=== PATIENT | female | born 1965 | race Caucasian/White ===

== ENCOUNTER → 2016-10-27 | Outpatient (CLI) | payer BC, OTHER ==
[~2016-10-27] MED LIST: /ACETCOD2T PO; /LOR25TA PO; BACT800T5 PO; DEXA PO; PRIL20CA PO; oxycodone PO; tylenol PO
[2016-10-27 07:06] LABS: BLOOD UREA NITROGEN 22 MG/DL (7-18); CREATININE FOR GFR 0.76 MG/DL (0.55-1.02); GLOMERULAR FILTRATION RATE > 60.0 (>51)
== END ==
LOC: M LAB 06:17
PROVIDERS: ATTEND Neurological Surgery
DX: D32.0 Benign neoplasm of cerebral meninges (principal)

== ENCOUNTER 2017-01-28 12:03 | Emergency (ER) | payer BC, OTHER ==
[~2017-01-28] VITALS: Ht 170.2 cm; Wt 90.9 kg
[2017-01-28] MEDS ORDERED: TRAM50TA2 (12:13)
[2017-01-28] MEDS ORDERED: DULO1CAP3 (12:13)
[2017-01-28] MEDS ORDERED: LISI10TA4 (12:13)
[2017-01-28] MEDS ORDERED: KETOROLAC 30 MG/ML VIAL (J1885) IV PRN (12:30)
[2017-01-28] MEDS ORDERED: NS 1,000 ML IV ONE (12:45)
[2017-01-28 13:08] LABS: CONTROL LINE UCG INT CTR LINE PRESENT
[2017-01-28 13:11] LABS: ALBUMIN 4.1 GM/DL (3.2-5.2); ALBUMIN/GLOBULIN RATIO 1.17 (1.00-1.93); BILIRUBIN,DIRECT 0.1 MG/DL (0.0-0.2); BILIRUBIN,TOTAL 0.4 MG/DL (0.2-1.0); TOTAL PROTEIN 7.6 GM/DL (6.4-8.2)
[2017-01-28] MEDS ORDERED: MORPHINE 4 MG/ML 1ML SYRINGE IV ONE (13:30)
[2017-01-28] MEDS ORDERED: ONDANSETRON 4MG/2ML VIAL (J2405) IV ONE (13:30)
[2017-01-28 13:36] LABS: MEAN CORPUSCULAR HEMOGLOBIN 30.8 pg (27.0-33.0); MEAN CORPUSCULAR HGB CONC 31.5 g/dl (32.0-36.5); MEAN CORPUSCULAR VOLUME 97.7 fl (80.0-96.0); PLATELET COUNT, AUTOMATED 272 10^3/uL (150-450); RED CELL DISTRIBUTION WIDTH 14.4 % (11.5-14.5)
[2017-01-28 13:45] LABS: POS COUNT POS FLAG; WHITE BLOOD COUNT 68.2 10^3/uL (4.0-10.0)
[2017-01-28 14:04] LABS: ANION GAP 7 MEQ/L (8-16); BLOOD UREA NITROGEN 19 MG/DL (7-18); CALCIUM LEVEL 9.1 MG/DL (8.5-10.1); CARBON DIOXIDE LEVEL 26 MEQ/L (21-32); CHLORIDE LEVEL 107 MEQ/L (98-107); CREATININE FOR GFR 0.83 MG/DL (0.55-1.02); GLOMERULAR FILTRATION RATE > 60.0 (>51); GLUCOSE, FASTING 94 MG/DL (70-105); POTASSIUM SERUM 4.3 MEQ/L (3.5-5.1); SODIUM LEVEL 140 MEQ/L (136-145)
[2017-01-28] MEDS ORDERED: FLOM5CAP PO (14:30)
[2017-01-28] MEDS ORDERED: ZOFR4TAB3 PO (14:30)
[2017-01-28] MEDS ORDERED: CIPR-249 PO (14:30)
[2017-01-28] MEDS ORDERED: NORCOTAB PO (14:30)
[2017-01-28 14:34] VITALS: BP 134/74
--- NOTE | 2017-01-31 13:48 | REP ---
CT ABDOMEN AND PELVIS WITHOUT CONTRAST: CT abdomen and pelvis performed without oral or IV contrast. Sagittal and coronal reconstruction images are performed. Comparison is made with a prior study of 07/29/2012. The visualized lung bases demonstrate no evidence of acute infiltrate. The liver, spleen, adrenals, and pancreas are grossly unremarkable. A few tiny intrarenal calcifications are seen in the region of the left lower pole collecting system. Right kidney demonstrates a couple of tiny subcentimeter calcifications in the lower pole. There is moderate right hydroureteronephrosis caused by a 6 mm calculus in the distal right ureter. No bladder calculi are seen. The urinary bladder is not well distended and now well evaluated. There are mild atherosclerotic calcifications of the abdominal aorta without aneurysm. There is no adenopathy. There is no free air or free fluid. There is no bowel wall thickening. There is diffuse colonic diverticulosis without evidence of acute diverticulitis. The appendix is normal. No pelvic mass is seen. There is a small hiatal hernia. IMPRESSION: Moderate right hydroureteronephrosis caused by a 6 mm calculus at the right ureterovesical junction. There are small subcentimeter intrarenal calcifications bilaterally. Signed by Surjit Mauricio MD 01/31/2017 05:00 P
== END 2017-01-28 14:36 | disposition home or self-care (01) ==
LOC: M ED 12:03
DX: N20.1 Calculus of ureter (principal); E86.0 Dehydration; D72.829 Elevated white blood cell count, unspecified; I10 Essential (primary) hypertension; F17.210 Nicotine dependence, cigarettes, uncomplicated; Z79.899 Other long term (current) drug therapy; Z85.6 Personal history of leukemia; Z87.442 Personal history of urinary calculi
CPT/HCPCS: 36415; 74176; 80048; 80076; 81001; 83690; 84703; 85027; 87086; 96374; 96375; 99284; J1885; J2405

== ENCOUNTER → 2017-10-19 | Outpatient (CLI) | payer BC, OTHER ==
[2017-10-19 08:26] LABS: BLOOD UREA NITROGEN 22 MG/DL (7-18)
[2017-10-19 08:26] LABS: CREATININE FOR GFR 0.84 MG/DL (0.55-1.30); GLOMERULAR FILTRATION RATE > 60.0 (>51)
== END ==
LOC: M LAB 07:08
DX: D32.0 Benign neoplasm of cerebral meninges (principal)
CPT/HCPCS: 82565

== ENCOUNTER → 2018-02-08 | Outpatient (REF) | payer OTHER ==
[2018-02-08 13:51] LABS: EOSINOPHILS 2 % (0-5); LYMPHOCYTES 93 % (16-52); NEUTROPHILS 5 % (35-75)
[2018-02-08 13:53] LABS: PLATELET ESTIMATE NORMAL (NORMAL); SMUDGE CELLS 3+
== END ==
LOC: M LAB REF 12:15
DX: C91.10 Chronic lymphocytic leukemia of B-cell type not having achieved remission (principal)
CPT/HCPCS: 85007

== ENCOUNTER → 2018-11-16 | Outpatient (CLI) | payer BC, OTHER ==
[~2018-11-16] MED LIST changes: -/ACETCOD2T PO; +ACET1TAB15 PO; +CIPR-249 PO; -DEXA PO; +DEXA1TAB5 PO; +DULO1CAP6; +FLOM0.4C39 PO; +HYDR-3715 PO; +LISI10TA4; +TRAM50TA2; +ZOFR4TAB14 PO
[2018-11-16 07:06] LABS: BLOOD UREA NITROGEN 31 MG/DL (7-18); CREATININE FOR GFR 0.94 MG/DL (0.55-1.30); GLOMERULAR FILTRATION RATE > 60.0 (>51)
== END ==
LOC: M LAB 06:11
PROVIDERS: ATTEND Neurological Surgery
DX: D32.0 Benign neoplasm of cerebral meninges (principal)

== ENCOUNTER → 2018-12-14 | Outpatient (CLI) | payer BC, OTHER ==
--- NOTE | 2018-12-15 08:04 | REP ---
Supine abdomen two views: The bowel gas pattern is normal. There are no calcifications. The skeletal structures and soft tissues otherwise are unremarkable. Impression: No calcifications are identified. Normal bowel gas pattern. Electronically Signed by Surjit Esquivel MD 12/15/2018 07:56 A
== END ==
LOC: M LRY 19:56
PROVIDERS: ATTEND Physician Assistant
DX: R30.0 Dysuria (principal); R10.9 Unspecified abdominal pain; Z87.442 Personal history of urinary calculi

== ENCOUNTER → 2018-12-14 | Outpatient (REF) | payer OTHER | LOC: M SFHCLERA 19:44 | PROVIDERS: ATTEND Physician Assistant | DX: R30.0 Dysuria (principal) ==

== ENCOUNTER → 2019-01-20 | Outpatient (CLI) | payer BC, OTHER ==
--- NOTE | 2019-01-20 13:29 | REP ---
PA and lateral chest: Comparison is 12/20/2007. The lung nunez are clear. The cardiac size is normal. The nicko, mediastinum, and skeletal structures are unremarkable. There are surgical clips at the base of the neck bilaterally as an interval change. Impression: Negative PA and lateral chest. Electronically Signed by Surjit Esquivel MD 01/20/2019 01:20 P
== END ==
LOC: M LRY 12:19
PROVIDERS: ATTEND Physician Assistant
DX: R05 Cough (principal)

== ENCOUNTER → 2019-06-19 | Outpatient (CLI) | payer BC, OTHER | LOC: M LABSMTC 10:44 | PROVIDERS: ATTEND Family Medicine | DX: Z11.59 Encounter for screening for other viral diseases (principal); Z20.828 Contact with and (suspected) exposure to other viral communicable diseases ==

== ENCOUNTER → 2019-08-16 | Outpatient (CLI) | payer BC, OTHER ==
--- NOTE | 2019-08-16 16:20 | REP ---
ULTRASOUND LEFT POPLITEAL FOSSA: Real-time sonographic evaluation of left popliteal fossa performed. There is a complex popliteal cyst with internal debris. It measures 6.0 x 3.7 x 5.6 cm. No other mass is seen in the left popliteal fossa. Electronically Signed by Surjit Mauricio MD 08/19/2019 10:04 P
== END ==
LOC: M LRY 11:05
PROVIDERS: ATTEND Nurse Practitioner Family
DX: R22.42 Localized swelling, mass and lump, left lower limb (principal)

== ENCOUNTER → 2020-11-18 | Outpatient (REF) ==
[~2020-11-18] MED LIST changes: +LISI10TA22; -LISI10TA4
== END ==
LOC: M LABSMTC 10:33
PROVIDERS: ATTEND Pediatrics
DX: Z11.52 Encounter for screening for COVID-19 (principal)

== ENCOUNTER → 2020-12-11 | Outpatient (REF) | LOC: M LABSMTC 11:10 | PROVIDERS: ATTEND Pediatrics | DX: Z20.822 Contact with and (suspected) exposure to COVID-19 (principal) ==

== ENCOUNTER → 2020-12-31 | Outpatient (CLI) | payer BC, OTHER ==
--- NOTE | 2020-12-31 11:41 | REP ---
INDICATION: ANKLE PAIN. COMPARISON: None. TECHNIQUE: Multiple sequences are obtained in the axial, coronal and sagittal planes. FINDINGS: The Achilles, anterior tibial, flexor hallucis longus, flexor digitorum longus and peroneal tendons are all intact without significant tenosynovitis. There is extensive abnormal signal throughout the posterior tibial tendon also involving the musculotendinous junction with mild diffuse surrounding fluid. Findings are consistent with diffuse partial tearing of the posterior tibial tendon. Above the level of the tibiotalar joint there appears to be an element of longitudinal tearing. The anterior and posterior talofibular, calcaneofibular and deltoid ligaments appear intact. Plantar tendon appears intact. There is no plantar fasciitis. Sinus tarsi appears unremarkable. No ganglion cyst is seen. There is a small effusion at the tibiotalar joint. The cartilaginous surfaces are smooth. No osteochondral defect is seen at the tibiotalar joint. There appears to be diffuse arthritic change of the intertarsal and tarsal/metatarsal joints with scattered areas of subchondral marrow edema. IMPRESSION: Extensive tendinopathy and partial tearing of the posterior tibial tendon above and below the tibiotalar joint. Above the level of the tibiotalar joint there appears to be an element of longitudinal tearing. <Electronically signed by Surjit Mauricio > 12/31/20 [id number]
== END ==
LOC: M PLAIMG 08:30
PROVIDERS: ATTEND Orthopaedic Surgery
DX: M25.571 Pain in right ankle and joints of right foot (principal)

== ENCOUNTER → 2021-03-30 | Outpatient (REF) | LOC: M LABSMTC 13:23 | PROVIDERS: ATTEND Pediatrics | DX: Z11.52 Encounter for screening for COVID-19 (principal); Z20.822 Contact with and (suspected) exposure to COVID-19 ==

== ENCOUNTER → 2021-04-07 | Outpatient (REF) | LOC: M LABSMTC 11:52 | PROVIDERS: ATTEND Pediatrics | DX: Z11.52 Encounter for screening for COVID-19 (principal); Z20.822 Contact with and (suspected) exposure to COVID-19 ==

== ENCOUNTER → 2021-04-12 | Outpatient (REF) | LOC: M LABSMTC 09:57 | PROVIDERS: ATTEND Family Medicine | DX: Z11.52 Encounter for screening for COVID-19 (principal); Z20.822 Contact with and (suspected) exposure to COVID-19 ==

== ENCOUNTER 2021-06-26 08:14 | Emergency (ER) | payer BC, OTHER ==
[~2021-06-26] VITALS: Ht 167.6 cm; Wt 90.9 kg
[2021-06-26 09:05] LABS: HEMATOCRIT 38.7 % (36.0-47.0); HEMOGLOBIN 12.2 g/dl (12.0-15.5); MEAN CORPUSCULAR HGB CONC 31.5 g/dl (32.0-36.5); MEAN CORPUSCULAR VOLUME 98.5 fl (80.0-96.0); PLATELET COUNT, AUTOMATED 205 10^3/uL (150-450); RED BLOOD COUNT 3.93 10^6/uL (4.00-5.40)
[2021-06-26] MEDS ORDERED: ONDANSETRON 4MG/2ML VIAL IV ONE (09:10)
[2021-06-26] MEDS ORDERED: MORPHINE 4 MG/ML 1ML VIAL/SYRINGE IV ONE (09:10)
[2021-06-26 09:17] LABS: WHITE BLOOD COUNT 80.6 10^3/uL (4.0-10.0)
[2021-06-26 09:24] LABS: ALBUMIN 3.5 GM/DL (3.2-5.2); ALT/SGPT 29 U/L (12-78); BILIRUBIN,DIRECT 0.2 MG/DL (0.0-0.2); BILIRUBIN,TOTAL 0.5 MG/DL (0.2-1.0); BLOOD UREA NITROGEN 17 MG/DL (7-18); CALCIUM LEVEL 8.7 MG/DL (8.5-10.1); CARBON DIOXIDE LEVEL 27 MEQ/L (21-32); CHLORIDE LEVEL 111 MEQ/L (98-107); CREATININE FOR GFR 0.69 MG/DL (0.55-1.30); GLOMERULAR FILTRATION RATE > 60.0 (>51); GLUCOSE, FASTING 127 MG/DL (70-100); LIPASE 82 U/L (73-393); POTASSIUM SERUM 3.9 MEQ/L (3.5-5.1); SODIUM LEVEL 143 MEQ/L (136-145); TOTAL PROTEIN 6.4 GM/DL (6.4-8.2)
[2021-06-26 09:56] LABS: LYMPHOCYTES 83 % (16-44); MONOCYTES 3 % (0-5)
[2021-06-26 09:58] LABS: PLATELET ESTIMATE NORMAL (NORMAL); SMUDGE CELLS 2+
[2021-06-26 09:59] LABS: ANISOCYTOSIS 1+
[2021-06-26 10:05] LABS: NEUTROPHILS 12 % (28-66)
[2021-06-26] MEDS ORDERED: CIPR-249 PO (10:09)
[2021-06-26] MEDS ORDERED: METR-265 PO (10:09)
[2021-06-26] MEDS ORDERED: CIPROFLOXACIN 500MG TABLET PO ONE (10:10)
[2021-06-26] MEDS ORDERED: metroNIDAZOLE (FLAGYL) 500MG TABLET PO ONE (10:10)
[2021-06-26] MEDS ORDERED: TRAM50TA2 PO (10:12)
[2021-06-26 10:16] VITALS: BP 147/73
== END 2021-06-26 10:23 | disposition home or self-care (01) ==
LOC: M ED 08:14
DX: K57.32 Diverticulitis of large intestine without perforation or abscess without bleeding (principal); I10 Essential (primary) hypertension; K21.9 Gastro-esophageal reflux disease without esophagitis; F33.9 Major depressive disorder, recurrent, unspecified; Z85.6 Personal history of leukemia; Z87.442 Personal history of urinary calculi; Z91.030 Bee allergy status; Z79.899 Other long term (current) drug therapy; F17.200 Nicotine dependence, unspecified, uncomplicated
CPT/HCPCS: 74176; 80048; 80076; 81001; 83690; 85025; 96374; 96375; 99284; J2270; J2405

== ENCOUNTER → 2021-09-20 | Outpatient (REF) | payer OTHER ==
[~2021-09-20] MED LIST changes: +METR-265 PO; +TRAM50TA2 PO
[2021-09-20 17:16] LABS: HEMATOCRIT 40.3 % (36.0-47.0); HEMOGLOBIN 12.4 g/dl (12.0-15.5); MEAN CORPUSCULAR HEMOGLOBIN 31.4 pg (27.0-33.0); MEAN CORPUSCULAR HGB CONC 30.8 g/dl (32.0-36.5); PLATELET COUNT, AUTOMATED 188 10^3/uL (150-450); RED BLOOD COUNT 3.95 10^6/uL (4.00-5.40)
[2021-09-20 17:22] LABS: WHITE BLOOD COUNT 89.3 10^3/uL (4.0-10.0)
[2021-09-20 18:25] LABS: LYMPHOCYTES 95 % (16-44); NEUTROPHILS 5 % (28-66); PLATELET ESTIMATE NORMAL (NORMAL); SMUDGE CELLS 4+
== END ==
LOC: M LAB REF 16:19
PROVIDERS: ATTEND Nurse Practitioner Adult Health
DX: C91.10 Chronic lymphocytic leukemia of B-cell type not having achieved remission (principal); D72.829 Elevated white blood cell count, unspecified

== ENCOUNTER → 2022-02-08 | Outpatient (REF) ==
[2022-02-08 13:23] LABS: RSV AMPLIFICATION NEGATIVE (NEGATIVE)
== END ==
LOC: M LABSMTC 10:11
PROVIDERS: ATTEND Family Medicine
DX: Z20.822 Contact with and (suspected) exposure to COVID-19 (principal); Z11.52 Encounter for screening for COVID-19

== ENCOUNTER → 2022-03-28 | Outpatient (REF) | payer OTHER ==
[2022-03-28 19:57] LABS: ATYPICAL LYMPH 2 % (0-5); BASOPHILS 1 % (0-1); MONOCYTES 1 % (0-5)
[2022-03-28 19:58] LABS: LYMPHOCYTES 89 % (16-44); NEUTROPHILS 7 % (28-66)
[2022-03-28 20:02] LABS: SMUDGE CELLS 3+
[2022-03-28 20:03] LABS: PLATELET CLUMPS SMALL AMT
[2022-03-28 20:07] LABS: PLATELET ESTIMATE INVALID (NORMAL)
== END ==
LOC: M LAB REF 11:27
PROVIDERS: ATTEND Nurse Practitioner Adult Health
DX: D75.89 Other specified diseases of blood and blood-forming organs (principal); C91.10 Chronic lymphocytic leukemia of B-cell type not having achieved remission

== ENCOUNTER → 2023-09-18 | Outpatient (REF) | payer OTHER ==
[2023-09-18 17:15] LABS: HEMATOCRIT 42.1 % (36.0-47.0); HEMOGLOBIN 13.5 g/dl (12.0-15.5); MEAN CORPUSCULAR HEMOGLOBIN 32.5 pg (27.0-33.0); MEAN CORPUSCULAR HGB CONC 32.1 g/dl (32.0-36.5); MEAN CORPUSCULAR VOLUME 101.4 fl (80.0-96.0); PLATELET COUNT, AUTOMATED 196 10^3/uL (150-450); RED BLOOD COUNT 4.15 10^6/uL (4.00-5.40)
[2023-09-18 17:27] LABS: WHITE BLOOD COUNT 62.9 10^3/uL (4.0-10.0)
[2023-09-18 18:13] LABS: ATYPICAL LYMPH 2 % (0-5); BASOPHILS 1 % (0-1); LYMPHOCYTES 84 % (16-44); MONOCYTES 3 % (0-5); NEUTROPHILS 10 % (28-66); PLATELET ESTIMATE NORMAL (NORMAL)
[2023-09-18 19:01] LABS: SMUDGE CELLS 3+
== END ==
LOC: M LAB REF 16:20
PROVIDERS: ATTEND Internal Medicine
DX: C91.10 Chronic lymphocytic leukemia of B-cell type not having achieved remission (principal)

== ENCOUNTER 2024-03-20 12:28 | Emergency (ER) | payer BC, OTHER ==
[~2024-03-20] VITALS: Ht 167.6 cm; Wt 87.5 kg
[2024-03-20] MEDS ORDERED: HYDR12.55 PO (12:43)
[2024-03-20] MEDS ORDERED: SIMV20TA22 PO (12:43)
[2024-03-20] MEDS ORDERED: SEMA1.7P SQ (12:43)
[2024-03-20] MEDS: NS (Normal Saline) 0.9% 1,000 ML IV ONE (13:48)
[2024-03-20] MEDS: KETOROLAC 30 MG/ML 1ML VIAL IV ONE (13:48)
[2024-03-20 13:58] LABS: BASO # 0.2 10^3/uL (0.0-0.2); BASO % 0.2 % (0.0-1.0); EOS # 0.1 10^3/uL (0.0-0.5); EOS % 0.1 % (0.0-3.0); HEMATOCRIT 44.3 % (36.0-47.0); HEMOGLOBIN 14.1 g/dl (12.0-15.5); LYMPH # 92.1 10^3/uL (1.5-5.0); LYMPH % 89.4 % (24.0-44.0); MEAN CORPUSCULAR HGB CONC 31.8 g/dl (32.0-36.5); MEAN CORPUSCULAR VOLUME 100.5 fl (80.0-96.0); MONO # 1.6 10^3/uL (0.0-0.8); MONO % 1.5 % (2.0-8.0); NEUTROPHILS # 8.8 10^3/uL (1.5-8.5); NEUTROPHILS % 8.5 % (36.0-66.0); PLATELET COUNT, AUTOMATED 214 10^3/uL (150-450); RED BLOOD COUNT 4.41 10^6/uL (4.00-5.40)
[2024-03-20 14:01] LABS: KETONE, URINE AUTO RFX TRACE mg/dL (NEGATIVE); LEUKOCYTE ESTERASE UR AUTO RFX NEGATIVE (NEGATIVE); MUCUS, URINE RFX SMALL (NEGATIVE); NITRITE, URINE AUTO RFX NEGATIVE (NEGATIVE); RBC, URINE AUTO RFX 6 /HPF (0-3); SQUAM EPITHELIAL CELL UR AURFX 4 /HPF (0-6); WBC, URINE AUTO RFX 2 /HPF (0-3)
[2024-03-20 14:15] LABS: WHITE BLOOD COUNT 103.1 10^3/uL (4.0-10.0)
[2024-03-20 14:23] LABS: BLOOD UREA NITROGEN 21 MG/DL (9-23); CALCIUM LEVEL 9.4 MG/DL (8.3-10.6); CARBON DIOXIDE LEVEL 29 MMOL/L (20-31); CHLORIDE LEVEL 112 MMOL/L (98-107); CREATININE FOR GFR 0.82 MG/DL (0.55-1.30); GLOMERULAR FILTRATION RATE > 60.0 (>45); GLUCOSE, FASTING 108 MG/DL (74-106); POTASSIUM SERUM 4.1 MMOL/L (3.5-5.1); SODIUM LEVEL 144 MMOL/L (136-145)
[2024-03-20] MEDS: METOCLOPRAMIDE INJ 10MG/2ML VIAL IV ONE (14:26)
[2024-03-20] MEDS: fentaNYL 100 MCG/2 ML INJECTION IV ONE (14:26)
[2024-03-20 14:33] VITALS: TEMP 97.8; O2SAT 97
[2024-03-20] MEDS: LOSARTAN 50MG TABLET PO ONE (14:39)
[2024-03-20] MEDS: hydroCHLOROthiazide 12.5 MG CAPSULE PO ONE (14:40)
[2024-03-20] MEDS ORDERED: ISOVUE-370 76% 100ML VIAL As Ordered ONE (15:40)
[2024-03-20 16:28] VITALS: BP 136/74
[2024-03-20] MEDS ORDERED: KETO10TAB PO (16:29)
== END 2024-03-20 16:46 | disposition home or self-care (01) ==
LOC: M ED 12:28
DX: R93.89 Abnormal findings on diagnostic imaging of other specified body structures (principal); D35.01 Benign neoplasm of right adrenal gland; Z91.030 Bee allergy status; Z79.899 Other long term (current) drug therapy; Z79.4 Long term (current) use of insulin
CPT/HCPCS: 74177; 76775; 80048; 81001; 85025; 96374; 96375; 99284; J1885; J2765; J3010; Q9967

== ENCOUNTER → 2024-03-29 | Outpatient (CLI) | payer BC ==
[~2024-03-29] MED LIST changes: +HYDR12.55 PO; +KETO10TAB PO; +SEMA1.7P SQ; +SIMV20TA22 PO
== END ==
LOC: M PLAIMG 13:29
PROVIDERS: ATTEND Internal Medicine
DX: M54.50 Low back pain, unspecified (principal); M47.817 Spondylosis without myelopathy or radiculopathy, lumbosacral region

== ENCOUNTER → 2024-04-03 | Outpatient (REF) | payer BC, OTHER ==
[2024-04-03 16:18] LABS: CORTISOL AM 2.5 UG/DL (4.3-22.4)
[2024-04-03 16:23] LABS: C REACTIVE PROTEIN QUANTITATIV < 0.50 MG/DL (<1.0)
== END ==
LOC: M LAB REF 13:07
PROVIDERS: ATTEND Internal Medicine
DX: D44.11 Neoplasm of uncertain behavior of right adrenal gland (principal); R53.83 Other fatigue; R61 Generalized hyperhidrosis

== ENCOUNTER → 2024-04-10 | Outpatient (CLI) | payer BC ==
[~2024-04-10] MED LIST changes: +PROHANCE 279.3MG/ML 15ML VIAL ONE; +PROHANCE 279.3MG/ML 5ML VIAL ONE
== END ==
LOC: M PLAIMG 11:21
PROVIDERS: ATTEND Internal Medicine
DX: D44.11 Neoplasm of uncertain behavior of right adrenal gland (principal)

== ENCOUNTER → 2024-11-14 | Outpatient (REF) | payer BC ==
[~2024-11-14] MED LIST changes: -FLOM0.4C39 PO; -PROHANCE 279.3MG/ML 15ML VIAL ONE; -PROHANCE 279.3MG/ML 5ML VIAL ONE; +TAMS-18 PO
[2024-11-14 18:52] LABS: BASO # 0.8 10^3/uL (0.0-0.2); BASO % 0.6 % (0.0-1.0); EOS # 0.2 10^3/uL (0.0-0.5); EOS % 0.1 % (0.0-3.0); LYMPH # 119.6 10^3/uL (1.5-5.0); LYMPH % 93.4 % (24.0-44.0); MONO # 1.4 10^3/uL (0.0-0.8); MONO % 1.1 % (2.0-8.0); NEUTROPHILS # 5.8 10^3/uL (1.5-8.5); NEUTROPHILS % 4.6 % (36.0-66.0); PLATELET COUNT, AUTOMATED 221 10^3/uL (150-450)
[2024-11-14 19:41] LABS: LYMPHOCYTES 86 % (16-44); MONOCYTES 2 % (0-5); NEUTROPHILS 12 % (28-66); PLATELET ESTIMATE NORMAL (NORMAL)
== END ==
LOC: M LAB REF 17:34
PROVIDERS: ATTEND Internal Medicine
DX: C91.10 Chronic lymphocytic leukemia of B-cell type not having achieved remission (principal)

== ENCOUNTER 2024-12-30 06:25 | Emergency (ER) | payer BC ==
[~2024-12-30] VITALS: Ht 167.6 cm; Wt 75.0 kg
[~2024-12-30 06:25] MED LIST changes: -DULO1CAP6; +DULO1CAP6 PO
[2024-12-30 06:27] VITALS: TEMP 98.2
[2024-12-30 06:54] LABS: PLATELET COUNT, AUTOMATED 192 10^3/uL (150-450)
[2024-12-30 07:08] LABS: INR 0.88
[2024-12-30 07:16] LABS: ALT/SGPT 12.0 U/L (7.0-40); AST/SGOT 19.0 U/L (<34); CALCIUM LEVEL 9.4 MG/DL (8.3-10.6); CARBON DIOXIDE LEVEL 29.0 MMOL/L (20-31); CHLORIDE LEVEL 106.0 MMOL/L (98-107); CK-MB VALUE MASS 1.6 NG/ML (<3.6); CREATININE FOR GFR 0.99 MG/DL (0.55-1.30); GLOMERULAR FILTRATION RATE 64.9 (>45); POTASSIUM SERUM 4.7 MMOL/L (3.5-5.1); SODIUM LEVEL 143.0 MMOL/L (136-145)
[2024-12-30 07:21] LABS: CPK CREATINE PHOSPHOKINASE 57.0 U/L (34-145); MB/CK RELATIVE INDEX 2.8 (< OR =4)
[2024-12-30 07:28] LABS: ATYPICAL LYMPH 43 % (0-5); BASOPHILS 1 % (0-1); LYMPHOCYTES 49 % (16-44); NEUTROPHILS 7 % (28-66)
[2024-12-30 07:29] LABS: PLATELET ESTIMATE NORMAL (NORMAL)
[2024-12-30 08:16] VITALS: BP 174/115
[2024-12-30] MEDS: NITROGLYCERIN 2% OINT 1 GM *U/D* PKT TOP ONE (08:16)
[2024-12-30 08:21] LABS: CK-MB VALUE MASS 1.3 NG/ML (<3.6)
[2024-12-30 08:23] LABS: CPK CREATINE PHOSPHOKINASE 48.0 U/L (34-145); MB/CK RELATIVE INDEX 2.7 (< OR =4)
[2024-12-30] MEDS ORDERED: CHLO1TAB35 PO (08:47)
[2024-12-30] MEDS ORDERED: ASPI81TA26 PO (08:47)
[2024-12-30] MEDS ORDERED: ONDA-83 PO (08:47)
[2024-12-30] MEDS ORDERED: ACET-683 PO (08:47)
[2024-12-30] MEDS ORDERED: OMEP40CA5 PO (08:47)
[2024-12-30] MEDS ORDERED: ENTR1TAB4 PO (08:47)
[2024-12-30] MEDS ORDERED: SIMV40TA20 PO (08:47)
[2024-12-30] MEDS ORDERED: SEMA2.4P SQ (08:47)
[2024-12-30] MEDS ORDERED: KAPS25CA PO (08:47)
[2024-12-30] MEDS ORDERED: HOME MED LIST COMPLETE! XX SCH (08:50)
[2024-12-30] MEDS ORDERED: ISOVUE-370 76% 100 ML VIAL As Ordered ONE (09:00)
[2024-12-30] MEDS: MORPHINE 4 MG/ML 1 ML VIAL IV PRN (09:53)
[2024-12-30] MEDS: ONDANSETRON 4MG 2ML VIAL IV ONE (10:10)
[2024-12-30 11:19] LABS: CK-MB VALUE MASS 1.5 NG/ML (<3.6)
[2024-12-30 11:20] LABS: CPK CREATINE PHOSPHOKINASE 47.0 U/L (34-145); MB/CK RELATIVE INDEX 3.19 (< OR =4)
[2024-12-30 14:45] VITALS: BP 166/104; O2SAT 93
[2024-12-30] MEDS ORDERED: HYDR-3713 PO (14:58)
== END 2024-12-30 15:22 | disposition home or self-care (01) ==
LOC: M ED 06:25
DX: R07.89 Other chest pain (principal); N20.0 Calculus of kidney; I50.22 Chronic systolic (congestive) heart failure; I11.0 Hypertensive heart disease with heart failure; K21.9 Gastro-esophageal reflux disease without esophagitis; F12.10 Cannabis abuse, uncomplicated; Z87.891 Personal history of nicotine dependence; Z91.030 Bee allergy status; Z79.1 Long term (current) use of non-steroidal anti-inflammatories (NSAID); Z79.899 Other long term (current) drug therapy; Z79.4 Long term (current) use of insulin
CPT/HCPCS: 71045; 71275; 74177; 80048; 80076; 82550; 82553; 83690; 84484; 85025; 85610; 85730; 87486; 87581; 87633; 87798; 93005; 96374; 96375; 99285; J2405; Q9967

== ENCOUNTER → 2025-01-06 | Outpatient (REF) | payer BC ==
[~2025-01-06] MED LIST changes: +ACET-683 PO; +ASPI81TA26 PO; +CHLO1TAB35 PO; +ENTR1TAB4 PO; +HYDR-3713 PO; +KAPS25CA PO; +OMEP40CA5 PO; +ONDA-83 PO; +SEMA2.4P SQ; +SIMV40TA20 PO
[2025-01-06 17:51] LABS: PLATELET COUNT, AUTOMATED 208 10^3/uL (150-450)
[2025-01-06 20:14] LABS: ATYPICAL LYMPH 2 % (0-5); LYMPHOCYTES 85 % (16-44); NEUTROPHILS 13 % (28-66)
[2025-01-06 20:16] LABS: PLATELET ESTIMATE NORMAL (NORMAL)
== END ==
LOC: M LAB REF 17:16
DX: R10.9 Unspecified abdominal pain (principal)